=== PATIENT | male | born 2000 | race Caucasian/White ===

== ENCOUNTER 2022-12-04 06:23 | Day surgery (SDC) | payer BC, SELFPAY ==
[2022-12-04] MEDS: LACTATED RINGERS 1000 ML 1,000 ML 100 ML IV (06:30)
[2022-12-04 06:41] VITALS: BP 114/60; PULSE 64; RESP 16; TEMP 36.6; O2SAT 99; BMI 18.4
[2022-12-04] MEDS: SODIUM CHLORIDE 0.9 % (FLUSH) 10 ML SYRINGE IVF (07:00)
--- NOTE | 2022-12-04 07:35 | PM.GSPRC ---
Operative Note Pre-op diagnosis: Desire for permanent sterilization Post-op diagnosis: Same Type of Procedure: Vasectomy Indications: The patient is a 22-year-old male who has 2 children. He does not desire any further children and has requested permanent sterilization. We did initially plan to perform the procedure in clinic, however because of patient's severe anxiety surrounding medical procedures we elected to proceed in the operating room. The patient is adamant that he desires permanent sterilization and is only anxious about the procedure itself. Procedure Description: After discussing the risks and benefits of the procedure, the patient signed informed consent.? The operative site was marked and the patient was brought to the operating room and placed on the operating table in supine position.? Care was taken to pad the patient's pressure points.?? The patient was then given sedation by anesthesia.?? The operative site was then prepped and draped in the usual sterile fashion.? A time-out was then performed. The scrotum and penis were prepped with copious Betadine and draped. I began on the right side. The spermatic cord was grasped and the vas deferens isolated. 1% lidocaine was injected into the scrotal skin and around the vas deferens. Once the skin was anesthetized, a stab incision was made overlying the vas. Blunt dissection was taken down to the vas. The vas deferens was then grasped and pulled out the incision. Careful dissection was then done to isolate a 3 cm segment of vas deferens from the surrounding blood vessels and tissue. Once this was done the vas was clipped proximally and distally and sharply transected with scissors. This was passed off for pathology. The wound was examined for hemostasis which was adequate. The same procedure was then performed on the left, again isolating a 3 cm segment of vas deferens and sending for pathology. Gauze dressings were then applied. The patient tolerated the procedure well ? The patient was then woken and transported to the recovery area in stable condition. ? The patient tolerated the procedure well. Findings: Vas deferens removed bilaterally. Anesthesia: MAC Surgeon: Leonila Patel MD Estimated blood loss (mL): 1 Additional Specimen Information: 1. Right vas deferens 2. Left vas deferens Condition: stable Disposition: same day Date of procedure: 12/04/22
[2022-12-04] MEDS: BUPIVACAINE 0.5% 30 ML INJECTION (07:52)
[2022-12-04 08:15] VITALS: BP 113/56; PULSE 72; RESP 16; TEMP 36.2; O2SAT 99
--- NOTE | 2022-12-04 08:22 | W.ANESCHARGE ---
Anesthesia Charges Start Date/Time Anesthesia Start Date: 12/04/22 Anesthesia Start Time: 07:37 Stop Date/Time Anesthesia Stop Date: 12/04/22 Anesthesia Stop Time: 08:17
--- NOTE | 2022-12-04 08:24 | W.ANESCHARGE ---
Anesthesia Charges Start Date/Time Anesthesia Start Date: 12/04/22 Anesthesia Start Time: 07:37 Stop Date/Time Anesthesia Stop Date: 12/04/22 Anesthesia Stop Time: 08:17
[2022-12-04 08:30] VITALS: BP 107/62; PULSE 65; RESP 16; O2SAT 99
[2022-12-04 08:45] VITALS: BP 106/71; PULSE 66; RESP 16; O2SAT 99
== END 2022-12-04 09:02 | disposition home or self-care (01) ==
PROVIDERS: PCP Registered Nurse; Visit Provider Surgery
PROC: (CPT 55250; principal; 2022-12-04 07:30)
DX: Z30.2 Encounter for sterilization (principal)
CPT/HCPCS: 55250; 00921; 88302; J0665; J2250; J2405; J2704; J3010; J7120

== ENCOUNTER 2022-12-07 00:55 | Emergency (ER) | payer BC, SELFPAY ==
[2022-12-07 01:02] VITALS: BP 128/78; PULSE 70; RESP 20; TEMP 36.7; O2SAT 99
--- NOTE | 2022-12-07 01:21 | ED.NURSE ---
MD in to apply steri-strips. Patient verbally discharged by MD. Patient left department ambulatory en route to home for self-care.
--- NOTE | 2022-12-07 04:39 | ED_ITS ---
HPI - General Adult General Chief complaint: Post Op Complication Stated complaint: post op pain Time Seen by Provider: 12/07/22 03:59 History of Present Illness HPI narrative: Patient c/o ? ripping a stitch? yesterday afternoon when he picked up his child. Patient states it bled for a moment and has not since. Patient is worried it will get infected. Patient had a vasectomy under general anesthesia on 12/04/2022 ( ). 22-year-old young man presenting to the emergency department with concern of torn stitch in the scrotum following a vasectomy that was done 3 days ago. 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 Hit the blood briefly and has not been bleeding since. Is worried about infection. No unusual increase in pain or swelling otherwise. No dysuria. No fever. Review of records shows a complicated vasectomy Related Data Home Medications Medication Instructions Recorded Confirmed ibuprofen 200 mg tablet (Advil) 200 mg PO Q8H 12/02/22 12/04/22 Previous Rx's Medication Instructions Recorded prednisone 20 mg tablet 40 mg (2 x 20 mg) PO DAILY 4 days 12/24/22 #8 tabs Allergies Allergy/AdvReac Type Severity Reaction Status Date / Time No Known Drug Allergies Allergy Verified 12/04/22 06:47 Review of Systems Status of ROS: Reports: 6 or more systems reviewed and unremarkable except as noted in History and below [facility] Social History Smoking Status: Current every day smoker What tobacco products do you use: cigarettes Smoking packs per day: 1 Smoking cigarettes per day: 20.0 Do you use any of these nicotine containing products: None Second hand tobacco smoke exposure: No How often do you have a drink containing alcohol: never How often do you have six or more drinks on one occasion: Never AUDIT-C Alcohol total score: 0 Non-prescribed substance use: marijuana (any form) Non-prescribed substance use details: smokes, last used yesterday Caffeine: No service: No Exam Narrative: Exam Narrative: Looks as Dermabond was involved in closure of 2 incision sites on scrotum bilaterally. The 1 on the left about 1 cm is open. Moist wound. Not actively bleeding though. No significant swelling/erythema/calor Const: Vital Signs, click to edit/add: Vital Signs - 24 hr 12/07/22 01:02 Temperature 98.0 F Pulse Rate [Left P ulse Oximeter] 70 Respiratory Rate 20 Blood Pressure [Ri ght Upper Arm] 128/78 Pulse Oximetry 99 Oxygen Delivery Me thod Room Air Documenting provider has reviewed patient's vital signs: yes Course Vital Signs Vital signs: Initial Vital Signs Temperature 98.0 F 12/07/22 01:02 Temperature Source Temporal Artery Scan 12/07/22 01:02 Pulse Rate 70 12/07/22 01:02 Pulse Rhythm Regular 12/07/22 01:02 Respiratory Rate 20 12/07/22 01:02 Blood Pressure 128/78 12/07/22 01:02 Blood Pressure Mean 94 12/07/22 01:02 Blood Pressure Position Sitting 12/07/22 01:02 Pulse Oximetry 99 12/07/22 01:02 Oxygen Delivery Method Room Air 12/07/22 01:02 Vital Signs Temperature 98.0 F 12/07/22 01:02 Pulse Rate 70 12/07/22 01:02 Respiratory Rate 20 12/07/22 01:02 Blood Pressure 128/78 12/07/22 01:02 Pulse Oximetry 99 12/07/22 01:02 Oxygen Delivery Method Room Air 12/07/22 01:02 Temperature 98.0 F 12/07/22 01:02 Pulse Rate 70 12/07/22 01:02 Respiratory Rate 20 12/07/22 01:02 Blood Pressure 128/78 12/07/22 01:02 Pulse Oximetry 99 12/07/22 01:02 Oxygen Delivery Method Room Air 12/07/22 01:02 Medical Decision Making MDM Narrative Medical decision making narrative: Discussed options for closure. I think this could closed with no intervention but admittedly it is just open. Preference is for Steri-Strips. Placed benzoin and Steri-Strips with good wound approximation. See patient discharge plan Medical Records Medical records reviewed: Yes I reviewed the patient's medical records Discharge Plan Discharge Clinical Impression: Postoperative dehiscence of skin wound Patient Disposition: Home, Self-Care Condition: Improved Additional Instructions: Hopefully Steri-Strips can stay on for at least 5 days. Can trim ends of Steri- Strips as a begin to peel away or you could also tack down with the supplied Dermabond or even super glue. Okay to get wet briefly but avoid soaking as per postoperative instructions. Prescriptions: No Action ibuprofen [Advil] 200 mg tablet 200 mg PO Q8H prednisone 20 mg tablet 40 mg PO DAILY 4 Days Qty: 8 0RF Follow Up/Referrals: Provider,Not a Local [Primary Care Provider] - Stand Alone Forms: [facility] Info Instructions
== END 2022-12-07 03:59 | disposition home or self-care (01) ==
PROVIDERS: Emergency Provider Family Medicine
DX: T81.31XA Disruption of external operation (surgical) wound, not elsewhere classified, initial encounter (principal)
CPT/HCPCS: 99283; 99284

== ENCOUNTER 2022-12-24 06:40 | Emergency (ER) | payer BC, SELFPAY ==
[2022-12-24 06:45] VITALS: BP 125/76; PULSE 69; RESP 16; TEMP 36.2; O2SAT 98
--- NOTE | 2022-12-24 07:11 | ED_ITS ---
HPI - General Adult General Chief complaint: Ear/Nose/Throat Problem Stated complaint: L ear pain Time Seen by Provider: 12/24/22 07:11 History of Present Illness HPI narrative: complaint of left ear pain, 6/10 pain. started around 0430. Reduced hearing in ear, muffled sounds . 22-year-old young man presenting to the emergency department with complaint of left ear pain and diminished sound. He has had some head cold symptoms. 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 No fever. No drainage. Mild sore throat. Took acetaminophen and placed warm pack. Still with pain. Does smoke. Related Data Home Medications Medication Instructions Recorded Confirmed ibuprofen 200 mg tablet (Advil) 200 mg PO Q8H 12/02/22 12/04/22 Previous Rx's Medication Instructions Recorded prednisone 20 mg tablet 40 mg (2 x 20 mg) PO DAILY 4 days 12/24/22 #8 tabs Allergies Allergy/AdvReac Type Severity Reaction Status Date / Time No Known Drug Allergies Allergy Verified 12/04/22 06:47 Review of Systems Status of ROS: Reports: 6 or more systems reviewed and unremarkable except as noted in History and below [facility] Social History Smoking Status: Current every day smoker What tobacco products do you use: cigarettes Smoking packs per day: 1 Smoking cigarettes per day: 20.0 Do you use any of these nicotine containing products: None Second hand tobacco smoke exposure: No How often do you have a drink containing alcohol: never How often do you have six or more drinks on one occasion: Never AUDIT-C Alcohol total score: 0 Non-prescribed substance use: marijuana (any form) Non-prescribed substance use details: smokes, last used yesterday Caffeine: No service: No Exam Narrative: Exam Narrative: Pleasant. Calm. Appears like he is holding in some discomfort. Sounds congested in the nasopharynx. No swelling erythema or tenderness noted about the face. Neck is supple without lymphadenopathy. Oropharynx is moist hyperemic. Lungs are clear. Left TM is full, erythematous but transparent. right TM pink and full. Heart in regular rate and rhythm. Const: Vital Signs, click to edit/add: Vital Signs - 24 hr 12/24/22 06:45 Temperature 97.2 F L Pulse Rate [Left P ulse Oximeter] 69 Respiratory Rate 16 Blood Pressure [Ri ght Upper Arm] 125/76 Pulse Oximetry 98 Oxygen Delivery Me thod Room Air Documenting provider has reviewed patient's vital signs: yes Course Vital Signs Vital signs: Initial Vital Signs Temperature 97.2 F L 12/24/22 06:45 Temperature Source Temporal Artery Scan 12/24/22 06:45 Pulse Rate 69 12/24/22 06:45 Pulse Rhythm Regular 12/24/22 06:45 Respiratory Rate 16 12/24/22 06:45 Blood Pressure 125/76 12/24/22 06:45 Blood Pressure Mean 92 12/24/22 06:45 Blood Pressure Position Sitting 12/24/22 06:45 Pulse Oximetry 98 12/24/22 06:45 Oxygen Delivery Method Room Air 12/24/22 06:45 Vital Signs Temperature 97.2 F L 12/24/22 06:45 Pulse Rate 69 12/24/22 06:45 Respiratory Rate 16 12/24/22 06:45 Blood Pressure 125/76 12/24/22 06:45 Pulse Oximetry 98 12/24/22 06:45 Oxygen Delivery Method Room Air 12/24/22 06:45 Temperature 97.2 F L 12/24/22 06:45 Pulse Rate 69 12/24/22 06:45 Respiratory Rate 16 12/24/22 06:45 Blood Pressure 125/76 12/24/22 06:45 Pulse Oximetry 98 12/24/22 06:45 Oxygen Delivery Method Room Air 12/24/22 06:45 Medical Decision Making MDM Narrative Medical decision making narrative: I think this is more eustachian tube dysfunction and secondary otalgia as opposed to an otitis media necessitating antibiotics at this point. Will need to work at decongestant. Head cold as other diagnosis. Clear findings in the ear. Not necessarily radiating from the throat. Given time of morning treated from stock here in the emergency department. Given dose of pseudoephedrine, oxymetazoline nasal spray and prednisone. See patient discharge plan Discharge Plan Discharge Clinical Impression: Dysfunction of eustachian tube, Otalgia of left ear Patient Disposition: Home, Self-Care Condition: Stable Additional Instructions: Stay well hydrated with water. Consider sleeping under the mist of a cool mist humidifier. Menthol vapors might be helpful. Try to quit smoking. Can take pseudoephedrine for drying and decongestion. I personally like the 12 hour formulation. You'll have to ask the pharmacist for this medication. Take this Afrin with you. You can use this maybe for up to 5 days at a time, then take a few days break. Prednisone will be called into the pharmacy. Be seen for persistent increase in the pain, fever, purulent drainage. Sometimes this pain can ramp up quickly and then change quickly due to fluid shifts. Can take up to 800 mg of ibuprofen or up to 1000 mg of acetaminophen per dose. Alternative to the ibuprofen might be up to 500 mg naproxen 2 times daily. Either ibuprofen and naproxen can be taken with acetaminophen. Prescriptions: New prednisone 20 mg tablet 40 mg PO DAILY 4 Days Qty: 8 0RF No Action ibuprofen [Advil] 200 mg tablet 200 mg PO Q8H Follow Up/Referrals: Provider,Not a Local [Primary Care Provider] - Stand Alone Forms: [employer] Info Instructions
[2022-12-24] MEDS: predniSONE 20 MG TABLET 60 MG PO (07:38)
[2022-12-24] MEDS: PSEUDOEPHEDRINE HCL 30 MG TABLET 60 MG PO (07:39)
[2022-12-24] MEDS: OXYMETAZOLINE 0.05% NASAL SPRAY 2 SPRAY NOSTRIL-B (07:39)
== END 2022-12-24 08:08 | disposition home or self-care (01) ==
PROVIDERS: Emergency Provider Family Medicine
DX: H92.02 Otalgia, left ear (principal); H69.92 Unspecified Eustachian tube disorder, left ear
CPT/HCPCS: 99283; A9270; J7512

== ENCOUNTER 2024-09-23 10:41 | Outpatient (RCR) | payer OTHER, BC, SELFPAY | END 2024-11-10 12:54 | disposition home or self-care (01) | PROVIDERS: Visit Provider Family Medicine | DX: M54.50 Low back pain, unspecified (principal); M54.6 Pain in thoracic spine; Z51.89 Encounter for other specified aftercare | CPT/HCPCS: 97110; 97140; 97161 ==

== ENCOUNTER 2025-01-26 01:46 | Emergency (ER) | payer OTHER, BC, SELFPAY ==
--- OUTSIDE RECORDS SUMMARY | 2025-01-26 01:49 | XMS_ITS | Clinical Summary ---
Author Organization [facility] Address [address] [place] [id number] Care Team Providers Care Manager Emergency Name Role Phone Zaira Boswell DO Primary Care Provider [phone] Allergies No known active allergies Medications ibuprofen (ADVIL; MOTRIN) 200 mg tablet Take 200 mg by mouth every 6 hours. Takes 4 tablets daily PRN Active Active Problems Problem Noted Date Diagnosed Date DANNY (generalized anxiety disorder) 07/17/2017 Methamphetamine abuse 07/17/2017 Overview (01/07/2021): Quit June 2020 Tobacco use disorder 07/17/2017 Marijuana abuse 09/28/2016 Depression, major, single episode, moderate 09/01 Alcohol abuse 09/28/2016 Conduct disorder 05/11/2012 Attention deficit disorder with hyperactivity(31 4.01) 03/31/2012 Resolved Problems Problem Noted Date Diagnosed Date Resolved Date Polysubstance (excluding opioids) dependence 8 09/21/2024 Immunizations Immunization Administration Dates Next Due COVID-19 vaccine ([facility] 30mcg/0.3mL) PF, MDV 09/05/2020,08/15/2020 DTaP 06/24/2005, 3,2000,09/22,2000 HIB HbOC (HibTITER) 08/06/2001, 1,2000,07/15 HPV 9 (Gardasil 9) 08/19/2021,09/23/2016 Hepatitis A (Peds) 06/04/2015,11/04/2012 Hepatitis B (Peds) 08/06/2001,02/25/2001, 001 Hib Conjugate, Unspecified 08/06/2001,,2000,07/15 Inactivated Polio Vaccine 06/24/2005,2000, 2000 Influenza, IIV4 02/09/2023,01/17/2020 MENINGOCOCCAL VACCINE 2 VIAL [id number] (MENVEO) 09/23/2016,06/04/2015 MMR 06/24/2005,05/23/2002 Pneumococcal Conj 20-valent (Prevnar 20) 08/19/2021 Pneumococcal conj 7-Valent (Prevnar 7) 1 2000,2000,2000,07/15 Tdap 02/09/2023,11/04/2012 Varicella Vaccine 08/20/2007,08/06/2001 Family History Medical History Relation Name Comments Psychiatric illness Father BPD, his tory of SIB, no medications; he is adopted Alcohol/Drug Maternal Grandfather Heart attack Maternal Grandfather Psychiatric illness Maternal Grandfather depressed, suicide attempt Alcohol/Drug Maternal Grandmother Alcohol/Drug Maternal Uncle heroin Alcohol/Drug Mother THC Alcohol/Drug Other maternal great aunt Relation Name Status Comments Father Maternal Grandfather Maternal Grandmother Maternal Uncle Mother Other Social History Tobacco Use Types Packs/Day Years Used Date Smoking Tobacco: Every Day Cigarettes 1 8 Smokeless Tobacco: Never Tobacco Cessation:Ready to Q uit: No; Counseling Given: Yes Alcohol Use Standard Drinks/Week Comments Not Currently 0 (1 standard drink = 0.6 oz pur e alcohol) 2 times a month PHQ-2 Answer Date Recorded PHQ-2 TOTAL SCORE 3 02/09/2023 Social Connections Answer Date Recorded Do you often feel lonely or isolated from those around you? 0 06/22/2024 Financial Resource Strain Answer Date R ecorded Difficulty of Paying Living Expenses 3 06/22/2024 Difficulty of Paying Living Expenses Not on file 06/22/2024 Food Insecurity Answer Date Recorded Do you worry your food will run out before you are able to buy more? 1 06/22/2024 Transportation Needs Answer Date Record ed Does lack of transportation keep you from medica l appointments? 1 06/22/2024 Does lack of transportation keep you from work, meetings or getting things that you need? 1 06/22/2024 Housing Stability Answer Date Recorded What is your housing situation today? 1 06/22/2024 Utilities Answer Date Recorded Do you have trouble paying f or utilities (for example, heat, electricity, water, phone)? 1 06/22/2024 Sex and Gender Information Value Date Recorded Sex Assigned at Not on file Legal Sex Male 6:22 AM [employer] Gender Identity Not on file Sexual Orientation Not on file Obstetrics History Last Filed Vital Signs Vital Sign Reading Time Taken Comments Blood Pressure 113/71 09/26/2024 1:10 PM CDT Pulse 82 09/26/2024 1:10 PM CDT Temperature 36.7 C (98.1 F) 01/07/2021 1:59 PM [employer] Respiratory Rate 16 08/02/2017 9:00 AM CDT Oxygen Saturation 96% 09/26/2024 1:10 PM CDT Inhaled Oxygen Concentration - - Weight 65.3 kg (144 lb) 09/21/2024 10:05 AM CDT Height 185.4 cm (6' 1) 09/21/2024 10:05 AM CDT Body Mass Index 19 09/21/2024 10:05 AM CDT Plan of Treatment Health Maintenance Due Date Last Done Comments HPV series for age 9-45 (3 - Male 3-dose series) 11/11/2021 08/19/2021, 09/23/2016 Depression screening for age 12+ 02/10/2024 02/09/2023, 08/21/2021, 08/20/2021, Additional history exists Influenza Vaccine (#1) 2024 02/09/2023, 2019 BMI (ht and wt on same day) for age 18+ 09/21/2025 09/21/2024, 08/19/2021, 01/07/2021, Additional history exists Tetanus booster 02/09/2033 02/09/2023, 11/04/2012 RSV vaccine for adults or (1 - 1-dose 75+ series) 05/14/2075 Hepatitis B series for 19+ Completed 08/06, 02/25/2001, 2000 HIV for age 15-65 Completed 10/13/2016 Hepatitis C screening for ag e 18-79 Completed 08/19/2021 Pneumococcal series for age 6-49 Completed 08/19/2021, 02/25/2001, 2000, Additional history exists Procedures Procedure Name Priority Date/Time Associated Diagnosis Comments ANTI HCV Routine 08/19/2021 4:38 PM CDT Need for hepatitis C screening test ANTI HIV 1/2 Routine 10/13/2016 2:46 PM CDT Fever, unspecified fever cause from Last 3 Months or Most Recently Relevant to Health Maintenance Results * ANTI HCV (08/19/2021 4:38 PM CDT) Pathologist [facility] HEPATITIS C ANTIBODY Non-React cyndie Non-React cyndie 08/20/2021 5:38 PM CDT [facility] Comment:Antibodies to HCV no t detected; does not exclude the possibility of exposure to HCV. Blood BLOOD SPECIMEN / Unknown Venipuncture / Unknown 08/19/2021 4:38 PM CDT 08/19/2021 4:38 PM CDT us Zaira Boswell DO SEND OUTS Final Result [facility] [address] [place] [address], * ANTI HIV 1/2 (10/13/2016 2:46 PM CDT) Pathologist [facility] HIV-1/HIV-2 ANTIBODY Non-Reacti ve Non-Reacti ve 10/13/2016 8:12 PM CDT [facility] Blood BLOOD SPECIMEN / Unknown Venipuncture / Unknown 10/13/2016 2:46 PM CDT 10/13/2016 2:46 PM CDT Narrative [facility] - 10/13/2016 8:12 PM CDT HIV-1 p24 and HIV-1/HIV-2 Ab not detected us Meli Cherry MD SEND OUTS Final Result [facility] [address] [place] [address], [place] from Last 3 Months or Most Recently Relevant to Health Maintenance Insurance [facility] [address] Advance Directives * Full Code (Latest Code Status on File) Date Activated Date Inactivated Comments 07/18/2017 7:29 AM 08/03/2017 3:33 PM Care Teams Manager Emergency Relationship Specialty Start Date End Date Zaira Boswell [place] [address] PCP - General Family Practice 06/22/24
[2025-01-26 02:05] VITALS: BP 133/80; PULSE 67; RESP 18; TEMP 36.6; O2SAT 99; BMI 19.1
--- NOTE | 2025-01-26 04:15 | ED_ITS ---
HPI - General Adult General Chief complaint: Dental/Oral/Mouth Injury/Pain Stated complaint: toothache/headache Time Seen by Provider: 01/26/25 02:16 Source: patient Mode of arrival: ambulatory Limitations: no limitations History of Present Illness HPI narrative: Patient presents the ED in the wee hours of a holiday for dental pain of the right lower jaw. Has been present for 3 days, worsening tonight. Tried taking a 1000 mg of Tylenol with some minimal improvement in symptoms. No fever. No drainage. Had a filling fall out 3 weeks ago, has not attempted to make a dental appointment the now that his pain is worsening he will do so. Has not seen a dentist in several years. No new injury or trauma. Does have some mild tenderness radiating up the left cheek towards the synagogue but no difficulty opening closing the jaw, no swelling of the tongue, no difficulty breathing or swelling of the airway. No neck pain. No neurological changes. Not immunocompromised. Does smoke. Reports benign past medical history, no long-term health problems. No medications, no allergies. ROS is notable for the dental symptoms only, otherwise denies times 12 systems. Related Data Home Medications ?Medication ?Instructions ?Recorded ?Confirmed acetaminophen 500 mg tablet 1,000 mg PO Q4-6H PRN 01/0101/26/25 (Tylenol Extra Strength) Allergies Allergy/AdvReac Type Severity Reaction Status Date / Time No Known Drug Allergies Allergy Verified 12/04/22 06:47 [facility] Social History Smoking Status: Current every day smoker What tobacco products do you use: cigarettes Smoking packs per day: 0.25 Smoking cigarettes per day: 5.0 Do you use any of these nicotine containing products: None Second hand tobacco smoke exposure: No How often do you have a drink containing alcohol: monthly or less How often do you have six or more drinks on one occasion: Never AUDIT-C Alcohol total score: 1 Non-prescribed substance use: marijuana (any form) Non-prescribed substance use details: smokes, last used yesterday Caffeine: No service: No Exam Const: Vital Signs, click to edit/add: Vital Signs - 24 hr 01/26/25 02:05 Temperature 97.9 F Pulse Rate [Right Pulse Oximeter] 67 Respiratory Rate 18 Blood Pressure [Le ft Upper Arm] 133/80 Pulse Oximetry 99 Oxygen Delivery Me thod Room Air Documenting provider has reviewed patient's vital signs: yes Common normals: no apparent distress General appearance: comfortable and well kempt HENMT: Common normals: normocephalic and moist oral mucous membranes Head and scalp: normocephalic Other: Normal TMs bilaterally. No facial swelling noted. Normal opening and closing of jaw. Lips appear normal. The teeth all look great with the exception of the 1st molar on the lower right jaw. The filling is extruded. The remaining dental cavity shows no signs of purulent drainage, there is no redness to the g um. He does have tenderness in this area. No odor. Eye: Common normals: conjunctivae normal General eye: normal appearance of both eyes Conjunctiva: conjunctiva(e) normal Neck & C-Spine: Common normals: full ROM and no lymphadenopathy General: normal visual inspection Resp: Common normals: normal respiratory effort, no use of accessory muscles and clear to auscultation bilaterally Effort & inspection: able to speak in complete sentences Auscultation: clear to auscultation bilaterally Cardio: Common normals: regular rate, regular rhythm, S1 normal heart sound, S2 normal heart sound and no murmurs Rate: regular rate Rhythm: regular rhythm Heart sounds: S1 normal and S2 normal Psych: Common normals: speech normal Appearance: well kempt Attitude: engaged Speech: normal speech Skin: Common normals: no rashes or lesions noted General skin exam: no rashes or lesions noted Course Course ED Course: 24-year-old male with dental pain following lost filling. No signs of airway swelling, neck swelling, sepsis, neurological compromise or fever. Patient will have significant difficulty getting dental care over this 4 day holiday weekend. With his increasing pain a.m. concerned that there is infection setting in. Will start amoxicillin 1000 b.i.d.. Prescription given for Toradol 1 p.o. q.6 p.r.n.. Counseled about [id number] Tylenol in addition to the Toradol as needed for pain control. Flexeril 10 mg at bedtime if he needs a sleep aid all from InStent meds. Alarm symptoms reviewed that would warrant ED re-evaluation. He verbalizes understanding and agreement Vital Signs Vital signs: Initial Vital Signs Temperature 97.9 F 01/26/25 02:05 Temperature Source Temporal Artery Scan 01/26/25 02:05 Pulse Rate 67 01/26/25 02:05 Pulse Rhythm Regular 01/26/25 02:05 Respiratory Rate 18 01/26/25 02:05 Blood Pressure 133/80 01/26/25 02:05 Blood Pressure Mean 97 01/26/25 02:05 Blood Pressure Position Sitting 01/26/25 02:05 Pulse Oximetry 99 01/26/25 02:05 Oxygen Delivery Method Room Air 01/26/25 02:05 Vital Signs Temperature 97.9 F 01/26/25 02:05 Pulse Rate 67 01/26/25 02:05 Respiratory Rate 18 01/26/25 02:05 Blood Pressure 133/80 01/26/25 02:05 Pulse Oximetry 99 01/26/25 02:05 Oxygen Delivery Method Room Air 01/26/25 02:05 Temperature 97.9 F 01/26/25 02:05 Pulse Rate 67 01/26/25 02:05 Respiratory Rate 18 01/26/25 02:05 Blood Pressure 133/80 01/26/25 02:05 Pulse Oximetry 99 01/26/25 02:05 Oxygen Delivery Method Room Air 01/26/25 02:05 Discharge Plan Discharge Clinical Impression: Toothache Patient Disposition: Home w/ Parent or Adult Condition: Stable Instructions: Toothache (ED) Additional Instructions: As we discussed, I am not seeing any signs of severe infection or abscess. Lost fillings can be quite painful and they do put you at risk of infection. You are right, you will have much difficulty getting into a dentist within the next 4 days. Please try to call on Thursday to make an appointment where ever possible. It will still likely be a week or 2 before you can get in. In the meantime, I will start you on an antibiotic, amoxicillin take 2 pills 2 times a day for the next week. For pain, you may continue using Tylenol 1000 mg every 6 hours. I have also given her prescription for Toradol which is an anti-inflammatory pain medicine to take 1 pill every 6 hours as needed as well. If you cannot sleep due to pain, I have given you a small supply of Flexeril which is a muscle relaxant that often causes sleepiness. Only take this if you cannot sleep due to the pain. You should come to the emergency room if you have severe swelling of the airway, inability to swallow, high fever over 100.4+ headache or neurological changes. Please call to get a dental appointment at your earliest convenience. Activity Level: No Restrictions Discharge Diet: Regular Prescriptions: No Action acetaminophen [Tylenol Extra Strength] 500 mg tablet 1,000 mg PO Q4-6H PRN Follow Up/Referrals: Provider,Not a Local [Primary Care Provider, Family Practice] Stand Alone Forms: Dem[employer] Info Instructions
== END 2025-01-26 03:18 | disposition home or self-care (01) ==
LOC: ED 02:52
PROVIDERS: Emergency Provider Family Medicine
DX: K08.89 Other specified disorders of teeth and supporting structures (principal); F17.210 Nicotine dependence, cigarettes, uncomplicated
CPT/HCPCS: 99283